=== PATIENT | female | born 1995 | race American Indian/Alaskan Native ===

== ENCOUNTER 2019-07-09 22:41 | Emergency (ER) | payer SELFPAY ==
[2019-07-10 02:40] LABS: Bilirubin,Urine NEG (Negative); Blood,Urine NEG (Negative); Color,Urine Yellow (Yellow); Mucus,Urine FEW /HPF; Protein,Urine <15 mg/dL mg/dL (Negative); Urobilinogen,Urine < 2.0 mg/dL (<2.0)
[2019-07-10 02:41] LABS: HCG Qualitative,Urine Negative (Negative)
--- NOTE | 2019-07-10 03:36 | Emergency Department Report ---
ED Female HPI - General Chief complaint: Urogenital-Female Stated complaint: VAG IRRITATION Time Seen by Provider: 07/10/19 03:03 Source: patient Mode of arrival: Ambulatory Limitations: No Limitations - History of Present Illness Initial comments: Patient is a 24-year-old female presents emergency room with complaints of vaginal irritation that began a few days ago. She states that last week she was prophylactically treated for G/C at [facility] and received azithromycin and ceftriaxone. She states a few days after completing the azithromycin she began to feel vaginal itching and had a thick white discharge. She denies any abdominal pain, fever, nausea, vomiting. She states it a past medical history of asthma. She states she has allergy to nystatin. Patient states her last menstrual cycle was 06/22/2019. - Related Data Previous Rx's Medication Instructions Recorded Last Taken Type Fluconazole [Diflucan TAB] 150 mg PO ONCE #1 tablet 07/10/19 Unknown Rx Allergies Allergy/AdvReac Type Severity Reaction Status Date / Time nystatin Allergy Hives Verified 07/10/19 01:57 ED Review of Systems ROS: Stated complaint: VAG IRRITATION Other details as noted in HPI Comment: All other systems reviewed and negative ED Past Medical Hx - Past Medical History Previous Medical History?: No - Surgical History Past Surgical History?: No - Social History Smoking Status: Never Smoker Substance Use Type: None - Medications Home Medications: Home Medications Medication Instructions Recorded Confirmed Last Taken Type Fluconazole [Diflucan TAB] 150 mg PO ONCE #1 tablet 07/10/19 Unknown Rx ED Physical Exam - General Limitations: No Limitations General appearance: alert, in no apparent distress - Head Head exam: Present: atraumatic, normocephalic - Eye Eye exam: Present: normal appearance - ENT ENT exam: Present: mucous membranes moist - Respiratory Respiratory exam: Present: normal lung sounds bilaterally. Absent: respiratory distress, wheezes, rales, rhonchi, stridor, chest wall tenderness, accessory muscle use, decreased breath sounds, prolonged expiratory - Cardiovascular Cardiovascular Exam: Present: regular rate, normal rhythm, normal heart sounds. Absent: systolic murmur, diastolic murmur, rubs, gallop - GI/Abdominal GI/Abdominal exam: Present: soft, normal bowel sounds. Absent: distended, tenderness, guarding, rebound, rigid - Neurological Exam Neurological exam: Present: alert, oriented X3 - Psychiatric Psychiatric exam: Present: normal affect, normal mood - Skin Skin exam: Present: warm, dry, intact ED Course Vital Signs 07/09/19 07/10/19 22:49 04:07 Temperature 98.2 F 98.2 F Pulse Rate 104 H 83 Respiratory 18 14 Rate Blood Pressure 143/88 132/81 O2 Sat by Pulse 100 100 Oximetry ED Medical Decision Making - Lab Data Lab Results 07/10/19 Range/Units Unknown Urine Color Yellow (Yellow) Urine Turbidity Clear (Clear) Urine pH 5.0 (5.0-7.0) Ur Specific [place] 1.023 (1.003-1.030) Urine Protein <15 mg/dl (Negative) mg/dL Urine Glucose (UA) Neg (Negative) mg/dL Urine Ketones 20 (Negative) mg/dL Urine Blood Neg (Negative) Urine Nitrite Neg (Negative) Urine Bilirubin Neg (Negative) Urine Urobilinogen < 2.0 (<2.0) mg/dL Ur Leukocyte Esterase Tr (Negative) Urine WBC (Auto) 1.0 (0.0-6.0) /HPF Urine RBC (Auto) 2.0 (0.0-6.0) /HPF U Epithel Cells (Auto) 2.0 (0-13.0) /HPF Urine Mucus Few /HPF Urine HCG, Qual Negative (Negative) Vital Signs 07/09/19 07/10/19 22:49 04:07 Temperature 98.2 F 98.2 F Pulse Rate 104 H 83 Respiratory 18 14 Rate Blood Pressure 143/88 132/81 O2 Sat by Pulse 100 100 Oximetry - Medical Decision Making Patient is a 24-year-old female presents emergency room with complaints of vaginal irritation that began a few days ago. She states that last week she was prophylactically treated for G/C at [facility] and received azithromycin and ceftriaxone. She states a few days after completing the azithromycin she began to feel vaginal itching and had a thick white discharge. She denies any abdominal pain, fever, nausea, vomiting. She states it a past medical history of asthma. She states she has allergy to nystatin. Patient states her last menstrual cycle was 06/22/2019. initial vitals with mild tachycardia which improved upon repeat to normal. UA WNL, urine preg is negative. Patient's symptoms consistent with yeast infection given patient's recent antibiotics and symptoms. Patient states that she has already been treated prophylactically for G/C, no concern for PID. pt has no abdominal tenderness on exam. Will give patient prescription for fluconazole. Advised patient to take medication as prescribed. If symptoms do not improve in 3 days please take another tablet. Follow-up with a primary care doctor in the next 2- 3 days. Return to the emergency room for any new or worsening symptoms. Critical care attestation.: If time is entered above; I have spent that time in minutes in the direct care of this critically ill patient, excluding procedure time. ED Disposition Clinical Impression: Vulvovaginal candidiasis Disposition: TO HOME OR SELFCARE Is pt being admited?: No Does the pt Need Aspirin: No Condition: Stable Instructions: Vulvovaginal Candidiasis (ED) Additional Instructions: take medication as prescribed. If symptoms do not improve in 3 days please take another tablet. Follow-up with a primary care doctor in the next 2-3 days. Return to the emergency room for any new or worsening symptoms. Prescriptions: Fluconazole [Diflucan TAB] 150 mg PO ONCE #1 tablet Referrals: ALESIA HERNÁNDEZ MD [Staff Physician] - 2-3 Days [facility] [Outside] - 2-3 Days Time of Disposition: 03:35 Print Language: [place]
[2019-07-10 04:22] VITALS: BP 132/81
== END 2019-07-10 04:12 | disposition home or self-care (01) ==
LOC: ED 22:41
DX: B37.3 Candidiasis of vulva and vagina (principal)
CPT/HCPCS: 81001; 81025; 99283